=== PATIENT | male | born 1955 | race Caucasian/White ===

== ENCOUNTER 2022-11-20 14:33 | Outpatient (REF) | payer MEDICARE, SELFPAY ==
[2022-11-20 18:33] LABS: Appearance Urine Turbid; Color Urine Yellow; Glucose Urine UA >=1000 mg/dL (Negative); Leukocyte Esterase Urine Moderate (2+) (Negative); Nitrite Urine Negative (Negative); PH 7.5 (5.0-9.0); Specific Gravity - Urine >= 1.030 (1.005-1.025); UMIC TRIGGER UACC YES; Urine Blood Large (3+) (Negative); Urine Ketones Negative (Negative); Urine Protein 30 (1+) mg/dL (Neg-Trace)
[2022-11-20 18:35] LABS: Bacteria Urine None Seen (None Seen); Hyaline Casts Urine 0-2 /LPF (0-2); RBC Urine >20 /HPF (0-2); Squamous Epithelial Cell Urine 0-2 /HPF (0-2); UACC Culture Trigger YES; WBC Urine >50 /HPF (0-5)
== END 2022-11-20 14:34 | disposition home or self-care (01) ==
LOC: HO.MANLDS 14:33
PROVIDERS: Visit Provider Internal Medicine
DX: N39.0 Urinary tract infection, site not specified (principal)
CPT/HCPCS: 81001; 87086; 87088; 87186

== ENCOUNTER 2023-09-11 09:05 | Outpatient (REF) | payer MEDICARE, SELFPAY ==
[2023-09-11 13:31] LABS: MANUAL DIFF FLAG NO
[2023-09-11 13:46] LABS: Basophils Percent Auto 0.5 % (0-2); Eosinophils Absolute Auto 0.3 X10*3/uL (0.0-0.4); Eosinophils Percent Auto 5.2 % (0-4); Hematocrit 42.6 % (42.0-52.0); Imm Gran Abs Auto 0.02 X10*3/uL (0.00-0.03); Imm Gran Pct Auto 0.3 % (0.0-0.4); Lymphocytes Absolute Auto 1.2 X10*3/uL (1.2-4.9); Lymphocytes Percent Auto 18.3 % (20-40); Mean Corpuscular HGB Conc 30.5 g/dl (31.0-36.0); Mean Corpuscular Hemoglobin 25.5 pg (27.0-33.0); Mean Corpuscular Volume 83.5 fL (80.0-98.0); Mean Platelet Volume 11.3 fL (9.4-12.4); Monocytes Absolute Auto 0.6 X10*3/uL (0.1-1.2); Monocytes Percent Auto 9.5 % (2-11); Neutrophils Absolute Auto 4.2 x10*3/uL (2.0-8.3); Neutrophils Percent Auto 66.2 % (45-73); Platelet Count 180 X10*3/uL (160-400); White Blood Count 6.3 X10*3/uL (4.8-10.8)
[2023-09-11 14:06] LABS: Alanine Aminotransferase 18 U/L (0-40); Albumin Level 4.1 g/dL (3.5-5.0); Alkaline Phosphatase 94 U/L (39-117); Anion Gap 14 (12-20); Aspartate Amino Transferase 20 U/L (5-37); Bilirubin Total 0.7 mg/dL (0.0-1.0); Blood Urea Nitrogen 17 mg/dL (9-16); C Reactive Protein < 0.10 mg/dL (< or = 0.50); Calcium 9.5 mg/dL (8.4-10.2); Carbon Dioxide 30 mmol/L (22-29); Chloride 102 mmol/L (96-108); Estimated Glomerular Filt Rate > 60; Glucose Random 114 mg/dL (60-115); Potassium 4.4 mmol/L (3.3-5.1); Sodium 142 mmol/L (135-145); Total Protein 7.3 g/dL (6.5-8.0)
[2023-09-11 14:22] LABS: Erythrocyte Sedimentation Rate 4 MM/HR (0-15)
[2023-09-11 14:24] LABS: Free T4 (Free Thyroxine) 0.77 ng/dL (0.71-1.85); Thyroid Stimulating Hormone 4.17 uIU/mL (0.32-4.0); Vitamin D 25-OH Total 44.9 ng/mL (>30)
[2023-09-11 14:25] LABS: Folate 7.7 ng/mL (> or = 4.0); Vitamin B12 633 pg/mL (200-900)
[2023-09-11 14:32] LABS: Parathyroid Hormone Intact 81.5 pg/mL (8.7-77.1)
[2023-09-12 22:08] LABS: Lyme Abs Screen <0.90 index
[2023-09-20 14:44] LABS: A. Phagocytophilum Ab IgG <1:64 (<1:64); A. Phagocytophilum Ab IgM <1:20 (<1:20); E. Chaffeensis Ab IgG <1:64 (<1:64); E. Chaffeensis Ab IgM <1:20 (<1:20)
[2023-09-21 17:42] LABS: Renin 0.67 ng/mL/h (0.25-5.82)
== END 2023-09-11 09:06 | disposition home or self-care (01) ==
LOC: HO.MANLDS 09:05
PROVIDERS: Visit Provider Physician Assistant
DX: R61 Generalized hyperhidrosis (principal); M79.604 Pain in right leg; M54.59 Other low back pain; I16.1 Hypertensive emergency
CPT/HCPCS: 36415; 80053; 82088; 82306; 82550; 82607; 82746; 83970; 84244; 84439; 84443; 85025; 85652; 86140; 86617; 86618; 86666

== ENCOUNTER 2023-09-28 09:34 | Outpatient (REF) | payer MEDICARE, SELFPAY ==
[2023-09-28 14:43] LABS: Calcium 9.7 mg/dL (8.4-10.2); Parathyroid Hormone Intact 64.4 pg/mL (8.7-77.1)
[2023-09-28 14:54] LABS: Free T4 (Free Thyroxine) 0.78 ng/dL (0.71-1.85); Thyroid Stimulating Hormone 5.47 uIU/mL (0.32-4.0); Vitamin D 25-OH Total 43.8 ng/mL (>30)
[2023-09-29 16:43] LABS: Triiodothyronine T3 Total 78 ng/dL (76-181)
[2023-10-02 11:07] LABS: Thyroid Peroxidase Antibodies <1 IU/mL (<9)
[2023-10-03 16:13] LABS: Thyroid Stimulating Immunoglob <89 % baseline (<140)
== END 2023-09-28 09:35 | disposition home or self-care (01) ==
LOC: HO.MANLDS 09:34
PROVIDERS: Visit Provider Physician Assistant
DX: E21.3 Hyperparathyroidism, unspecified (principal); E03.9 Hypothyroidism, unspecified
CPT/HCPCS: 36415; 82306; 82310; 83970; 84439; 84443; 84445; 84480; 86376

== ENCOUNTER 2023-10-15 09:05 | Outpatient (REF) | payer MEDICARE, SELFPAY ==
[2023-10-15 14:10] LABS: Free T4 (Free Thyroxine) 0.91 ng/dL (0.71-1.85); Thyroid Stimulating Hormone 3.01 uIU/mL (0.32-4.0)
== END 2023-10-15 09:06 | disposition home or self-care (01) ==
LOC: HO.MANLDS 09:05
PROVIDERS: Visit Provider Physician Assistant
DX: E03.9 Hypothyroidism, unspecified (principal)
CPT/HCPCS: 36415; 84439; 84443

== ENCOUNTER 2024-02-01 08:48 | Outpatient (REF) | payer MEDICARE, SELFPAY ==
[2024-02-01 13:21] LABS: MANUAL DIFF FLAG NO
[2024-02-01 13:42] LABS: Basophils Percent Auto 0.3 % (0-2); Eosinophils Absolute Auto 0.4 X10*3/uL (0.0-0.4); Eosinophils Percent Auto 4.2 % (0-4); Hematocrit 43.6 % (42.0-52.0); Hemoglobin 13.2 g/dl (14.0-18.0); Imm Gran Abs Auto 0.04 X10*3/uL (0.00-0.03); Imm Gran Pct Auto 0.5 % (0.0-0.4); Lymphocytes Percent Auto 11.6 % (20-40); Mean Corpuscular HGB Conc 30.3 g/dl (31.0-36.0); Mean Corpuscular Hemoglobin 25.7 pg (27.0-33.0); Mean Corpuscular Volume 84.8 fL (80.0-98.0); Mean Platelet Volume 12.1 fL (9.4-12.4); Monocytes Absolute Auto 0.7 X10*3/uL (0.1-1.2); Monocytes Percent Auto 7.8 % (2-11); Neutrophils Absolute Auto 6.7 x10*3/uL (2.0-8.3); Neutrophils Percent Auto 75.6 % (45-73); Platelet Count 172 X10*3/uL (160-400); Red Blood Count 5.14 X10*6/uL (4.60-5.80); Red Cell Distribution Width 20.2 % (11.0-16.0); White Blood Count 8.8 X10*3/uL (4.8-10.8)
[2024-02-01 14:14] LABS: Iron 36 mcg/dL (45-160); Magnesium 2.2 mg/dL (1.6-2.6); Percent Iron Saturation 12 % (15-50); Total Iron Binding Capacity 301 mcg/dL (228-428); Unsaturated Iron Binding 265 ug/dL
[2024-02-01 14:24] LABS: Ferritin 15 ng/mL (20-250)
== END 2024-02-01 08:49 | disposition home or self-care (01) ==
LOC: HO.MANLDS 08:48
PROVIDERS: Visit Provider Physician Assistant
DX: E83.42 Hypomagnesemia (principal); D50.8 Other iron deficiency anemias
CPT/HCPCS: 36415; 82728; 83540; 83735; 85025